=== PATIENT | male | born 1955 | race Caucasian/White ===

== ENCOUNTER 2017-02-16 13:02 | Emergency (ER) | payer BC | END 2017-02-16 18:54 | disposition home or self-care (01) | LOC: D.ER 13:02 | DX: M25.511 Pain in right shoulder (principal); S46.911A Strain of unspecified muscle, fascia and tendon at shoulder and upper arm level, right arm, initial encounter; X58.XXXA Exposure to other specified factors, initial encounter; Y93.89 Activity, other specified; Y92.89 Other specified places as the place of occurrence of the external cause; M25.561 Pain in right knee; B19.20 Unspecified viral hepatitis C without hepatic coma; L40.9 Psoriasis, unspecified ==